=== PATIENT | female | born 1945 ===

== ENCOUNTER 2019-01-11 13:28 | Emergency (ER) | payer BC, MEDICAID, MEDICARE, OTHER ==
[2019-01-11 13:28] VITALS: BMI 38.7
[2019-01-11 14:05] VITALS: RESP 18
--- NOTE | 2019-01-11 14:56 | ED PDOC ---
HPI: Trauma/Fall - HPI Time Seen by Provider: 01/11/19 14:45 Chief Complaint (Nursing): Trauma Chief Complaint (Provider): trauma History Per: Patient History/Exam Limitations: no limitations Onset/Duration Of Symptoms: Days (10x) Injury Occurred (Timing): Days Ago: (9x) Location Of Injury: Left: Chest, Knee, Shoulder Severity: Moderate Associated Symptoms: denies: LOC Additional Complaint(s): 73 year old female with no pertinent past medical history presents to the ED for an evaluation of left knee, left shoulder, and left sided ribcage pain status post fall that occurred 9x days ago. Patient states that 9x days ago she was getting out of a car when she tripped and fell onto her left side injuring her head (denies loss of consciousness) and causing pain to her left shoulder, left side of her rib cage, and left knee (with bruising). Patient reports having d ifficulty with raising her left arm. Otherwise patient denies having any other complaints. PMD: Shaik Ariana JEAN-BAPTISTE Past Medical History Reviewed: Historical Data, Nursing Documentation, Vital Signs Vital Signs: Last Vital Signs Temp 98.2 F 01/11/19 14:03 Pulse 89 01/11/19 14:03 Resp 18 01/11/19 14:03 BP 188/92 H 01/11/19 14:03 Pulse Ox 95 01/11/19 14:03 DOMINIK Report Viewed: Yes - Medical History PMH: Arthritis, HTN, Hyperlipidemia - Surgical History Surgical History: Denies: Pacemaker - Family History Family History: States: No Known Family Hx - Social History Current smoker - smoking cessation education provided: No Alcohol: None Drugs: Denies - Home Medications Home Medications: Ambulatory Orders Medication Instructions Recorded Acetaminophen/Tramadol [place] 1 tab PO BID 03/08/14 [APAP/Tramadol Hydrochloride 325 mg-37.5 mg] Atorvastatin [Lipitor] 10 mg PO DIN 03/08/14 Esomeprazole Magnesium [Nexium] 40 mg PO DAILY 03/08/14 Metformin Hydrochloride [Metformin 500 mg PO DAILY 03/08/14 HCl] Pyridoxine [Vitamin B-6] 100 mg PO DAILY 03/08/14 RX: Aspirin 325 mg PO DAILY 03/08/14 RX: Gabapentin 300 mg PO DAILY 03/08/14 RX: Pioglitazone HCl 15 mg PO DAILY 03/08/14 RX: Vitamin D 50,000 iu PO DAILY 03/08/14 Vitamin B Complex & Vitamin C 1 tab PO DAILY 03/08/14 [Strovite] amLODIPine [Norvasc] 5 mg PO DAILY 03/08/14 Acetaminophen/Oxycodone Hydr 1 tab PO Q4H PRN 03/09/14 [Percocet 325 mg-5 mg] Amoxicillin/Clavulanate [Augmentin 1 tab PO BID 03/09/14 875 MG-125 MG] Ferrous Fum/Vit C/B12/Stomc [Ziks 1 tab PO DAILY 03/09/14 Hematogen] RX: Cane 1 each MC DAILY #1 each 01/11/19 oxyCODONE/Acetaminophen [Percocet 1 ea PO Q8 PRN #4 tab 01/11/19 5/325 mg Tab] - Allergies Allergies/Adverse Reactions: Allergies Allergy/AdvReac Type Severity Reaction Status Date / Time No Known Allergies Allergy Verified 01/11/19 14:02 Review of Systems ROS Statement: Except As Marked, All Systems Reviewed And Found Negative Cardiovascular: Positive for: Other (left sided ribcage pain) Musculoskeletal: Positive for: Shoulder Pain (left), Other (left knee pain with bruising) Physical Exam - Reviewed Nursing Documentation Reviewed: Yes Vital Signs Reviewed: Yes - Physical Exam Appears: Positive for: Well, Non-toxic, No Acute Distress Head Exam: Positive for: ATRAUMATIC, NORMAL INSPECTION, NORMOCEPHALIC Skin: Positive for: Normal Color, Warm, Dry Cardiovascular/Chest: Positive for: Regular Rate, Rhythm. Negative for: Chest Non Tender (left chest wall: tenderness of the lower rib cage) Respiratory: Positive for: Normal Breath Sounds (lung clear to auscultation) Extremity: Positive for: Tenderness (left shoulder: tenderness to proximal humerus. limited ROM due to pain. ), Other (left knee: mild ecchymosis, no effusion. able to flex and extend.) Neurologic/Psych: Positive for: Alert, Oriented (3x) - ECG O2 Sat by Pulse Oximetry: 95 (RA) Pulse Ox Interpretation: Normal - Progress ED Course And Treament: knee xry: dgd shoulder left: no fx chest/rib: no obvious fx 1/2 of percocet 5/325 mg x 1 dose po here. Repeat BP 180/100. Patient has taken bp medications today. Patient advised to f/u with pmd tomorrow for further management of BP> INcentive spirometry kit given in ED Medical Decision Making Medical Decision Makin:45 Initial impression: 73 year old female with ribcage, shoulder, and knee pain status post fall Initial plan: * xray knee left 3 views * xray ribs and chest left * xray shoulder left * reevaluation Scribe Attestation: Documented Yasmin Sheffield, acting as a scribe for Blessing Sena PA-C. Provider Scribe Attestation: All medical record entries made by the Scribe were at my direction and personally dictated by me. I have reviewed the chart and agree that the record accurately reflects my personal performance of the history, physical exam, medical decision making, and the department course for this patient. I have also personally directed, reviewed, and agree with the discharge instructions and disposition. Disposition - Clinical Impression Clinical Impression: Rib injury - Patient ED Disposition Is Patient to be Admitted: No - Disposition Disposition: Routine/Home Disposition Time: 16:13 Condition: FAIR Prescriptions: RX: Cane 1 each MC DAILY #1 each oxyCODONE/Acetaminophen [Percocet 5/325 mg Tab] 1 ea PO Q8 PRN #4 tab PRN Reason: Pain, Severe (8-10) Instructions: Contusion (DC), Shoulder Sprain (DC), Bruised Rib (DC) Print Language: TAJIK
[2019-01-11] MEDS ORDERED: Oxycodone/Acetaminophen 5/325 mg Tab PO STA (16:24)
--- NOTE | 2019-01-11 16:53 | RAD ---
Date of service: 01/11/2019 PROCEDURE: Radiographs of the Chest and Left Ribs. HISTORY: chest pain COMPARISON: None available. TECHNIQUE: Frontal radiograph of the chest and multiple oblique radiographs of the left ribs were obtained. FINDINGS: LEFT RIBS: No fracture or focal lesion visualized. LUNGS: Clear. PLEURA: No pneumothorax or pleural fluid. CARDIOVASCULAR: Normal cardiac size. No pulmonary vascular congestion. No aortic atherosclerotic calcification present OTHER FINDINGS: None. IMPRESSION: Unremarkable radiographs of the chest and left ribs. No left rib fracture.
--- NOTE | 2019-01-11 16:53 | RAD ---
Date of service: 01/11/2019 PROCEDURE: Radiographs of the Left Shoulder HISTORY: shoulder injury COMPARISON: No prior. FINDINGS: BONES: Normal. No fracture. JOINTS: High riding humeral head relative to the glenoid indicative of rotator cuff disease. Moderate acromioclavicular degenerative change. SOFT TISSUES: Normal. OTHER FINDINGS: None. IMPRESSION: No acute findings related to/ accounting for the clinical presentation.
--- NOTE | 2019-01-11 16:54 | RAD ---
Date of service: 01/11/2019 PROCEDURE: Left Knee Radiographs. HISTORY: Pain. No history of recent/ related trauma provided COMPARISON: None. FINDINGS: BONES: No acute fracture. Proliferative hypertrophic changes emanating from the femoral condyle and tibial plateau regions. JOINTS: Mild medial compartment narrowing. Mild patellofemoral degenerative change. JOINT EFFUSION: None. OTHER FINDINGS: None. IMPRESSION: Mild degenerative change, no acute findings.
[2019-01-11 16:57] VITALS: BP 191/99; PULSE 76; TEMP 97.9
[2019-01-12 00:14] VITALS: O2SAT 95
== END 2019-01-11 17:00 | disposition home or self-care (01) ==
LOC: H.ER 13:28
DX: S29.9XXA Unspecified injury of thorax, initial encounter (principal); W19.XXXA Unspecified fall, initial encounter; I10 Essential (primary) hypertension